=== PATIENT | male | born 1945 | race Caucasian/White ===

== ENCOUNTER → 2017-05-09 | Outpatient (REF) ==
[2017-05-09 18:50] LABS: PSA-TOTAL 4.38 ng/mL (0-4); THYROID STIMULATING HORMONE 1.31 uIU/mL (0.465-4.680)
== END ==
LOC: ZLAB.WCH 18:03
PROVIDERS: Internal Medicine
DX: Z01.89 Encounter for other specified special examinations (principal)
CPT/HCPCS: G0103

== ENCOUNTER → 2018-09-13 | Outpatient (REF) ==
[2018-09-13 16:48] LABS: THYROID STIMULATING HORMONE 1.86 uIU/mL (0.465-4.680)
[2018-09-13 17:52] LABS: PSA-TOTAL 4.97 ng/mL (0-4)
== END ==
LOC: ZLAB.WCH 16:00
PROVIDERS: Internal Medicine
DX: Z01.89 Encounter for other specified special examinations (principal)
CPT/HCPCS: G0103